=== PATIENT | male | born 1990 | race Caucasian/White ===

== ENCOUNTER 2020-08-10 01:16 | Emergency (ER) | payer MEDICARE ==
[~2020-08-10 01:16] MED LIST: BENADRYL 25MG C25 MG PO; IBUPROFEN600 MG PO; PRILOSEC OTC20 MG PO; ZOFRAN4 MG PO; ZOLOFT25 MG PO
[2020-08-10 03:44] LABS: HEMOGLOBIN 16.1 gm/dl (14.0-17.5); RED BLOOD COUNT 5.13 M/UL (4.20-5.50); WHITE BLOOD COUNT 20.2 K/UL (4.5-11.0)
[2020-08-10 04:16] LABS: BUN/CREATININE RATIO 20 (0-10)
[2020-08-10] MEDS ORDERED: ZOFRAN ODT 4 MG4 MG SL (05:55)
== END 2020-08-10 07:00 | disposition home or self-care (01) ==
LOC: ER1 01:16
PROVIDERS: Emergency Medicine
DX: R11.2 Nausea with vomiting, unspecified (principal); R19.7 Diarrhea, unspecified; Z20.822 Contact with and (suspected) exposure to COVID-19; Z79.899 Other long term (current) drug therapy; F17.290 Nicotine dependence, other tobacco product, uncomplicated
CPT/HCPCS: 80053; 83690; 85025; 96374; 99284; J2405; J2550; Q9967; U0002

== ENCOUNTER 2020-12-14 21:20 | Emergency (ER) | payer MEDICARE ==
[~2020-12-14 21:20] MED LIST changes: +ZOFRAN ODT 4 MG4 MG SL
[2020-12-14] MEDS ORDERED: BENADRYL 50MG C50 MG PO (22:11)
[2020-12-14] MEDS ORDERED: PREDNISONE50 MG PO (22:11)
[2020-12-14] MEDS ORDERED: PEPCID20 MG PO (22:11)
== END 2020-12-14 22:21 | disposition home or self-care (01) ==
LOC: ER1 21:20
DX: T63.461A Toxic effect of venom of wasps, accidental (unintentional), initial encounter (principal); Z88.1 Allergy status to other antibiotic agents; Z88.8 Allergy status to other drugs, medicaments and biological substances
CPT/HCPCS: 96372; 99281; J2930

== ENCOUNTER 2021-05-13 19:07 | Emergency (ER) | payer MEDICARE ==
[~2021-05-13 19:07] MED LIST changes: +BENADRYL 50MG C50 MG PO; +PEPCID20 MG PO; +PREDNISONE50 MG PO
[2021-05-13] MEDS ORDERED: DELSYM30 MG/5 ML PO ×2 (21:39→21:40)
[2021-05-13] MEDS ORDERED: IBUPROFEN600 MG PO ×2 (21:39→21:40)
== END 2021-05-13 21:43 | disposition home or self-care (01) ==
LOC: ER1 19:07
DX: U07.1 COVID-19 (principal)
CPT/HCPCS: 0240U; 99283

== ENCOUNTER → 2021-08-23 | Outpatient (CLI) | payer MEDICARE ==
[~2021-08-23] MED LIST changes: +DELSYM30 MG/5 ML PO
== END ==
LOC: HEART 5 08:33
DX: R07.9 Chest pain, unspecified (principal); R00.2 Palpitations; R06.02 Shortness of breath
CPT/HCPCS: 78452; A9502